=== PATIENT | male | born 2000 | race Caucasian/White ===

== ENCOUNTER 2023-10-27 18:22 | Emergency (ER) | payer BC ==
[~2023-10-27] VITALS: Ht 170.2 cm; Wt 72.7 kg
[2023-10-27 18:25] VITALS: TEMP 98.5
[2023-10-27] MEDS ORDERED: Ondansetron 4 MG/2 ML VIAL IV ONE (18:45)
[2023-10-27] MEDS ORDERED: LR 1,000 ML IV ONE (18:45)
[2023-10-27] MEDS ORDERED: Pantoprazole 40 MG in NS 10 ML IV ONE (18:45)
[2023-10-27 18:49] LABS: BASO # 0.1 K/mm3 (0.0-0.2); BASO % 0.3 % (0.0-2.0); EOS % 0.1 % (0.0-4.0); GRAN # 14.8 K/mm3 (1.4-6.5); HEMATOCRIT 43.5 % (42.0-52.0); HEMOGLOBIN 15.4 g/dl (13.5-18.0); LYMPH # 1.1 K/mm3 (1.2-3.4); LYMPH % 6.4 % (20.0-51.0); MEAN CELL VOLUME 90 fl (80.0-100.0); MEAN CORPUSCULAR HEMOGLOBIN 32 pg (27-31); MEAN CORPUSCULAR HGB CONC 35 g/dl (33.0-37.0); MEAN PLATELET VOLUME 9.5 fl (7.4-10.4); MONO # 1.2 K/mm3 (0.1-0.6); MONO % 6.7 % (1.7-9.3); PLATELET COUNT 317 K/mm3 (130-400); RED BLOOD COUNT 4.81 M/mm3 (4.20-5.60); REDCELL DISTRIBUTION WIDTH-CV 13.1 % (11.5-14.5)
[2023-10-27 19:06] LABS: ALANINE AMINOTRANSFERASE 60 U/L (0-55); ALBUMIN 5.5 g/dL (3.5-5.0); ALKALINE PHOSPHATASE 58 U/L (40-150); ANION GAP 17 mmol/L (7-16); AST,SGOT 33 U/L (5-34); BILIRUBIN,TOTAL 1.1 mg/dL (0.2-1.2); BLOOD UREA NITROGEN 11 mg/dL (9-21); C-REACTIVE PROTEIN 0.04 mg/dL (0.00-0.50); CALCIUM 10.9 mg/dL (8.4-10.2); CHLORIDE 104 mEq/L (98-107); GLUCOSE 124 mg/dL (70-99); SODIUM 143 mEq/L (136-145); TOTAL PROTEIN 8.8 g/dl (6.2-8.1)
[2023-10-27 19:24] LABS: LIPASE < 7 U/L (8-78)
[2023-10-27 19:25] LABS: URINE APPEARANCE CLEAR (CLEAR/HAZY); URINE BLOOD NEGATIVE (NEGATIVE); URINE COLOR YELLOW (YELLOW); URINE GLUCOSE NEGATIVE (NEGATIVE); URINE KETONE NEGATIVE (NEGATIVE); URINE NITRATE NEGATIVE (NEGATIVE); URINE PROTEIN(semi-quant) 2+ (NEGATIVE)
[2023-10-27 19:40] LABS: COLLECTION METHOD CLEAN CATCH
[2023-10-27] MEDS ORDERED: droPERidol 2.5 MG/ML 2 ML VIAL IV ONE (19:45)
[2023-10-27] MEDS ORDERED: NS 1,000 ML IV ONE (19:45)
[2023-10-27] MEDS ORDERED: diphenhydrAMINE 50 MG/ML 1 ML VIAL IV ONE (19:45)
[2023-10-27] MEDS ORDERED: ZOFRAN ODT4 MG PO (20:15)
[2023-10-27] MEDS ORDERED: Home Ondansetron ODT 4 MG #2 ODT/PACK PO ONE (20:15)
[2023-10-27 20:23] VITALS: BP 141/73; PULSE 83
== END 2023-10-27 20:37 | disposition home or self-care (01) ==
LOC: COL.ER 18:22
PROVIDERS: Family Medicine
DX: E86.0 Dehydration (principal); R11.2 Nausea with vomiting, unspecified
CPT/HCPCS: C9113; J1200; J1790; J2405; J7030; J7120